=== PATIENT | female | born 1980 ===

== ENCOUNTER 2016-12-17 21:10 | Emergency (ER) | payer BC ==
--- NOTE | 2016-12-17 21:20 | PDOC ---
History of Present Illness - General History Source: Patient Exam Limitations: No Limitations - History of Present Illness Initial Comments: 12/17/16 21:27 The patient is a 36 year old female, with no significant past medical history who presents to the emergency department with painful rash on the right side of her right abdomen since thursday. She reports having pain on her right abdomen since thursday. She reports having chicken poxs when she was 6. She denies any sick contacts. She reports being stressed recently. She denies recent fevers, chills, headache or dizziness. She denies recent nausea, vomit, diarrhea or constipation. She denies recent chest pain or shortness of breath. PAST MEDICAL HISTORY: No significant history. PAST SURGICAL HISTORY: No significant history. FAMILY HISTORY: No pertinent history. SOCIAL HISTORY: Patient lives with family and is employed. MEDICATIONS: Reviewed. ALLERGIES: As per nursing notes. ROS General: No fevers or chills, no weakness, no weight loss HEENT: No change in vision. No sore throat. No ear pain CardioVascular: No chest pain or shortness of breath Respiratory:No cough, or wheezing. Gastrointestinal: No nausea, vomiting, diarrhea or constipation. No rectal bleeding Genitourinary: No dysuria, hematuria, or frequency Musculoskeletal: No joint or muscle pain or swelling Neurologic: No headache, vertigo, dizziness or loss of consciousness Psychiatric: No depression Skin: + rashes No: easy bruising Endocrine: no increased thirst or abnormal weight change Allergic: no skin or latex allergy All other systems reviewed and normal Exam: General: Well-nourished well-developed individual, no acute distress HEENT: Throat: Normal, tonsils normal, no erythema or exudate Neck: Supple, no meningeal signs, no lymphadenopathy Eyes: Pupils equal reactive and round, extraocular motion intact Chest: Nontender to palpation Cardiac: S1-S2 normal, regular rate and rhythm, no murmurs rubs or gallops Respiratory: Lungs clear to auscultation bilateral Abdomen: Soft, nondistended, normal bowel sounds, nontender to palpation diffusely Extremities: Warm, dry, no cyanosis, clubbing, or edema Skin: vesicular rash dermatomal distribution along the right back, flank, and abdomen area consistent with shingles. Neuro: Alert and oriented x3, nonfocal exam, grossly intact, normal gait Psych: Normal mood and affect <Smith Sutton - Last Filed: 12/17/16 21:27> - General History Source: Patient Exam Limitations: No Limitations <Boston Erazo I - Last Filed: 12/17/16 21:29> - General Chief Complaint: Rash Stated Complaint: PAINFUL RASH R ABD AREA Time Seen by Provider: 12/17/16 21:13 Past History <Smith Sutton - Last Filed: 12/17/16 21:27> - Psycho/Social/Smoking Cessation Hx Anxiety: No Suicidal Ideation: No Smoking History: Never smoked Have you smoked in the past 12 months: No Number of Cigarettes Smoked Daily: 0 Information on smoking cessation initiated: No Hx Alcohol Use: No Drug/Substance Use Hx: No Substance Use Type: None <Boston Erazo I - Last Filed: 12/17/16 21:29> - Past Medical History Allergies/Adverse Reactions: Allergies Allergy/AdvReac Type Severity Reaction Status Date / Time ORANGES Allergy Uncoded 12/17/16 21:20 Home Medications: Ambulatory Orders Acyclovir [Zovirax -] 800 mg PO QID #40 tablet 12/17/16 *Physical Exam - Vital Signs Last Vital Signs Temp Pulse Resp BP Pulse Ox 98 F 80 14 117/80 100 12/17/16 21:14 12/17/16 21:14 12/17/16 21:14 12/17/16 21:14 12/17/16 21:14 <Smith Sutton - Last Filed: 12/17/16 21:27> - Vital Signs Last Vital Signs Temp Pulse Resp BP Pulse Ox 98 F 80 14 117/80 100 12/17/16 21:14 12/17/16 21:14 12/17/16 21:14 12/17/16 21:14 12/17/16 21:14 <Boston Erazo I - Last Filed: 12/17/16 21:29> *DC/Admit/Observation/Transfer - Attestations Scribe Attestion: 12/17/16 21:23 Documentation prepared by Smith Sutton, acting as medical stenographer for Boston Erazo MD. <Smith Sutton - Last Filed: 12/17/16 21:27> - Discharge Dispostion Admit: No <Boston Erazo I - Last Filed: 12/17/16 21:29> Diagnosis at time of Disposition: Herpes zoster Qualifiers: Herpes zoster complications: without complications Qualified Code(s): B02.9 - Zoster without complications - Discharge Dispostion Disposition: HOME Condition at time of disposition: Good - Prescriptions Prescriptions: Acyclovir [Zovirax -] 800 mg PO QID #40 tablet - Patient Instructions Printed Discharge Instructions: Herpes Zoster Vaccine, DI for Shingles Additional Instructions: Take Zovirax one tablet 4 times a day for the next 10 days. Return to the emergency department immediately with ANY new, persistent or worsening symptoms. Continue any medications as previously prescribed by your physician. You should follow up with your primary doctor as soon as possible regarding today's emergency department visit. . Please make sure your doctor reviews the results of your emergency evaluation. Thank you for coming to the Emergency Department today for your care. It was a pleasure to see you today. Please note that your evaluation is INCOMPLETE until you follow-up with your doctor. Addendum entered and electronically signed by Boston Erazo MD 21:30: A portion of this note was documented by scribe services under my direction. I have reviewed the details of the note, within reason, and agree with the documentation. The case summary and management plan written by me. Assessment and plan: This is a 36-year-old female who comes in complaining of a rash. Patient's rash is vesicular and in a dermatome distribution. Patient's rash is consistent with herpes zoster. Patient started on acyclovir as she is only had symptoms for 2 days and will continue course of acyclovir for 10 days. Patient discharged home. Patient will follow-up with her primary care doctor as needed.
[2016-12-17] MEDS ORDERED: ACYCLOVIR 400 MG TABLET PO ONE (21:27)
[2016-12-17 21:38] VITALS: BP 117/80; PULSE 80; TEMP 98; BMI 21.7
== END 2016-12-17 21:48 | disposition home or self-care (01) ==
LOC: FER 21:10
DX: B02.9 Zoster without complications (principal)
CPT/HCPCS: 99282-25